=== PATIENT | male | born 1965 | race Caucasian/White ===

== ENCOUNTER 2020-01-01 07:45 | Inpatient (IN) | payer MEDICAID ==
[~2020-01-01] VITALS: Ht 182.9 cm; Wt 147.0 kg
[2020-02-19] MEDS ORDERED: QUET25TA34 PO (16:00)
[2020-02-19 16:55] LABS: BASOPHILS # (AUTO) 0.1 X10'3 (0-0.2); BASOPHILS % (AUTO) 0.8 % (0-1); EOSINOPHILS # (AUTO) 0.2 X10'3 (0-0.9); EOSINOPHILS % (AUTO) 1.9 % (0-6); LYMPHOCYTES # (AUTO) 2.4 X10'3 (1.1-4.8); LYMPHOCYTES % (AUTO) 26.8 % (21-51); MEAN CORPUSCULAR HEMOGLOBIN 30.1 PG (27.0-31.0); MEAN CORPUSCULAR HGB CONC 33.6 g/dL (33.0-36.5); MEAN CORPUSCULAR VOLUME 89.7 FL (78-98); MEAN PLATELET VOLUME 7.4 FL (7.4-10.4); MONOCYTES # (AUTO) 0.8 X10'3 (0-0.9); MONOCYTES % (AUTO) 9.5 % (2-12); NEUTROPHILS # (AUTO) 5.4 X10'3 (1.8-7.7); PRE OP HEMATOCRIT 41.1 % (42.0-52.0); PRE OP HEMOGLOBIN 13.8 g/dL (14.0-17.9); PRE OP PLATELET COUNT 207 X10'3 (140-440); RED BLOOD COUNT 4.58 X10'6 (4.70-6.10); RED CELL DISTRIBUTION WIDTH 14.4 % (11.5-14.5)
[2020-02-19 17:51] LABS: ALBUMIN 3.2 G/DL (3.4-5.0); ALBUMIN/GLOBULIN RATIO 0.8 (1.1-1.5); ALKALINE PHOSPHATASE 111 IU/L (46-116); BLOOD UREA NITROGEN 16 MG/DL (7-18); BUN/CREATININE RATIO 15.8 (5.4-32.0); CALCIUM 8.6 MG/DL (8.5-10.1); CHLORIDE 109 MMOL/L (99-107); CREATININE 1.01 MG/DL (0.60-1.10); PRE OP ALT 23 U/L (30-65); PRE OP ANION GAP 10 (8-16); PRE OP AST 15 U/L (10-37); PRE OP BILIRUB, TOTAL 0.3 MG/DL (0.0-1.0); PRE OP GLUCOSE 101 MG/DL (70-104); PRE OP SODIUM 145 MMOL/L (135-145); TOTAL CARBON DIOXIDE 26.1 MMOL/L (24-32); TOTAL PROTEIN 7.1 G/DL (6.4-8.2); eGFR 77 ML/MIN
[2020-02-26] MEDS ORDERED: ringers solution, lacted 1,000 ML IV SCH (05:00)
[2020-02-26] MEDS ORDERED: famotidine 20mg tablet PO ONE (05:30)
[2020-02-26] MEDS ORDERED: ceFAZolin inj. 3,000 MG in normal saline 100ml IV soln 100 ML IV ONE (05:30)
[2020-02-26] MEDS ORDERED: vancomycin 1,500 MG in NS 300ml IV soln IV ONE (05:30)
[2020-02-26] MEDS ORDERED: tranexamic acid 650mg tablet PO ONE (06:00)
[2020-03-04] VITALS (17 sets, daily range): BP systolic 86–128; BP diastolic 56–78
[2020-03-04] MEDS ORDERED: ceFAZolin inj. 3,000 MG in normal saline 100ml IV soln 100 ML IV ONE (05:30)
[2020-03-04] MEDS ORDERED: famotidine 20mg tablet PO ONE (05:30)
[2020-03-04] MEDS ORDERED: vancomycin 1,500 MG in NS 300ml IV soln IV ONE (05:30)
[2020-03-04] MEDS ORDERED: tranexamic acid 650mg tablet PO ONE (05:30)
[2020-03-04] MEDS ORDERED: ringers solution, lacted 1,000 ML IV SCH ×2 (05:30→11:35)
[2020-03-04] MEDS ORDERED: NO HOME MEDS (08:44)
[2020-03-04] MEDS ORDERED: ROPIVAcaine 0.5% (5mg/ml) 30ml vial ONE ×2 (09:16→12:36)
[2020-03-04] MEDS ORDERED: ketorolac trometh. 30mg/ml inj. ONE (09:16)
[2020-03-04] MEDS ORDERED: tetracaine 1% (10mg/ml) pres. free inj. ONE (09:41)
[2020-03-04] MEDS ORDERED: mineral oil 10ml sterile, topical TP ONE (09:44)
[2020-03-04] MEDS ORDERED: fentaNYL/PF 50MCG/1 ML 2ML syringe ONE (10:12)
[2020-03-04] MEDS ORDERED: MIDAZolam 1mg/ml 10ml vial ONE (10:12)
[2020-03-04] MEDS ORDERED: meperidine/PF 25mg/ml syringe IV PRN ×3 (11:35)
[2020-03-04] MEDS ORDERED: morphine 2 MG/ML inj. syringe IV PRN (11:35)
[2020-03-04] MEDS ORDERED: morphine 4 MG/ML inj SYRINge IV PRN (11:35)
[2020-03-04] MEDS ORDERED: ROPIVAcaine 0.2% (10 MG/5 ML) BOLUS INJECTION ADDCANAL PRN (11:35)
[2020-03-04] MEDS ORDERED: proCHLORperazine 10 MG/2 ml inj IV PRN (11:35)
[2020-03-04] MEDS ORDERED: ondansetron/PF 4mg/2ml inj IV PRN ×2 (11:35→13:15)
[2020-03-04] MEDS ORDERED: propofol inj 20 ML IV ONE (12:22)
[2020-03-04] MEDS ORDERED: acetaminophen 325mg tablet PO PRN (13:15)
[2020-03-04] MEDS ORDERED: diphenhydrAMINE 25mg capsule PO PRN ×2 (13:15)
[2020-03-04] MEDS ORDERED: oxyCODONE IR 5mg (immed. release) tablet PO PRN (13:15)
[2020-03-04] MEDS ORDERED: bisacodyl 10mg suppository rectal RC PRN (13:15)
[2020-03-04] MEDS ORDERED: magnesium hydroxide 30ml (MOM) UD suspension PO PRN (13:15)
[2020-03-04] MEDS ORDERED: HYDROmorphone inj. 0.5 MG/0.5 ML DISP.SYRIN IV PRN (13:15)
[2020-03-04] MEDS ORDERED: HYDROmorphone 1 mg/ml syringe IV PRN (13:15)
--- NOTE | 2020-03-04 13:20 | NUR ---
PATIENT ARRIVED TO RECOVERY VIA BED WITH DR SANDOVAL, PATIENT A&OX4, DENIES PAIN, V/S WNL, NEUROVASCULAR CHECKS INTACT-SENSATION T-9, R FOOT PINK AND WARM, 20G PIV LFA , DRESSING TO RIGHT KNEE CDI W/ COLD POWDER PACK AND WRAP IN PLACE W/ SCDS ON. F/C DRAINING CLEAR YELLOW URINE.
[2020-03-04] MEDS: ROPIVAcaine 0.2%/PF PUMP/bolus 550 ML ADDCANAL SCH (13:48)
[2020-03-04] MEDS: acetaminophen 325mg tablet PO SCH ×2 (14:00→20:32)
--- NOTE | 2020-03-04 14:07 | NUR ---
I have received report from DIAMOND HATCH IN REC[facility]ERY and had the opportunity to ask questions. WILL AWAIT PTS ARRIVAL TO THE FLOOR.
--- NOTE | 2020-03-04 14:30 | NUR ---
PATIENT A&OX4, DENIES PAIN, V/S WNL, NEUROVASCULAR CHECKS INTACT, , DRESSING TO RIGHT KNEE W/ COLD POWDER PACK ,SCDS ON. F/C DRAINING CLEAR YELLOW URINE. SENSATION T-9, ON-Q PUMP ATTACHED AND PLACED AT 2ML/HR . PATIENT TAKEN TO RM 349B WITH ALL BELONGINGS AND HOOKED UP TO MONITORS IN ROOM AND REPORT GIVEN TO FIELD SERVICER WHO HAS TAKEN OVER PATIENT CARE. BED LOW, CALL LIGHT PRESENT AND VSS.
[2020-03-04] MEDS: ceFAZolin/D5W- 1GM premix 50 ML IV SCH ×2 (15:52→23:59)
--- NOTE | 2020-03-04 18:16 | NUR ---
Problems reprioritized. Patient report given, questions answered & plan of care reviewed with DIAMOND RICE.
[2020-03-04] MEDS ORDERED: vancomycin/NS 1 GM ADD-VANTAGE 250 ML IV SCH (20:00)
[2020-03-04] MEDS: potassium cl 20mEq in 1/2 NS 1,000 ML IV SCH (20:31)
[2020-03-04] MEDS: sennosides 8.6mg tablet PO SCH (20:31)
[2020-03-04] MEDS: oxyCODONE IR 5mg (immed. release) tablet PO PRN (20:32)
[2020-03-05] MEDS: oxyCODONE IR 5mg (immed. release) tablet PO PRN ×4 (00:29→21:17)
[2020-03-05] MEDS: acetaminophen 325mg tablet PO SCH ×4 (02:00→19:42)
[2020-03-05 04:00] VITALS: BP 107/67
[2020-03-05] MEDS: potassium cl 20mEq in 1/2 NS 1,000 ML IV SCH (05:36)
[2020-03-05 06:42] LABS: BASOPHILS % (AUTO) 0.1 % (0-1); EOSINOPHILS % (AUTO) 0 % (0-6); HEMATOCRIT 34.6 % (42.0-52.0); HEMOGLOBIN 11.6 g/dl (14.0-17.9); LYMPHOCYTES # (AUTO) 1.3 X10'3 (1.1-4.8); LYMPHOCYTES % (AUTO) 10.9 % (21-51); MEAN CORPUSCULAR HEMOGLOBIN 30.1 PG (27.0-31.0); MEAN CORPUSCULAR HGB CONC 33.5 g/dL (33.0-36.5); MEAN CORPUSCULAR VOLUME 89.9 FL (78-98); MEAN PLATELET VOLUME 7.6 FL (7.4-10.4); MONOCYTES # (AUTO) 0.8 X10'3 (0-0.9); MONOCYTES % (AUTO) 6.6 % (2-12); NEUTROPHILS # (AUTO) 9.7 X10'3 (1.8-7.7); NEUTROPHILS % (AUTO) 82.4 % (42-75); PLATELET COUNT 232 X10'3 (140-440); RED BLOOD COUNT 3.84 X10'6 (4.70-6.10); RED CELL DISTRIBUTION WIDTH 14.4 % (11.5-14.5); WHITE BLOOD COUNT 11.8 X10'3 (4.5-11.0)
--- NOTE | 2020-03-05 06:52 | NUR ---
Report given to Scott FIELDS.
--- NOTE | 2020-03-05 06:52 | NUR ---
Patient in room [facility]. I have received report from DIAMOND RICE and had the opportunity to ask questions and assume patient care.
[2020-03-05 07:00] LABS: ANION GAP 8 (8-16); CHLORIDE 106 MMOL/L (99-107); POTASSIUM 4.3 MMOL/L (3.5-5.1); SODIUM 139 MMOL/L (135-145); TOTAL CARBON DIOXIDE 24.7 MMOL/L (24-32)
[2020-03-05 07:18] VITALS: BP 111/68
[2020-03-05] MEDS: aspirin 325mg tablet PO SCH (08:28)
--- NOTE | 2020-03-05 10:07 | NUR ---
PA Ernst in to see patient. Dressing to right leg with red drainage circled. Removed dressing with Ernst PA, minimal bloody drainage from suture sites. Suture intact. Per Ernst cleanse wound with chlorhexidine, placed sutures, cover with gauze and island dressing.
[2020-03-05 11:00] VITALS: BP 134/78
--- NOTE | 2020-03-05 12:50 | NUR ---
Joint Replacement Consult: Pt seen by RD for written/verbal high protein ed w/ RD contact information provided s/p TKA-R. Pt is agreeable to double eggs at breakfast, double meats BIDLD, and chocolate Gio shake BIDBD for wound healing post-op. Pt reports dislikes cabbage, cauliflower,brussel sprouts, and tomatoes. PA notified for ONS recs and dietary notified of pt preferences. Addendum: 03/05/20 at [address] Amended: Links added.
[2020-03-05 18:00] VITALS: BP 116/70
--- NOTE | 2020-03-05 18:23 | NUR ---
Problems reprioritized. Patient report given, questions answered & plan of care reviewed with DIAMOND Sigala.
[2020-03-05] MEDS: sennosides 8.6mg tablet PO SCH (19:43)
[2020-03-05] MEDS: JUVEN Shake w/Arg/Glut/Ca2+Bmb (Juven 19.3gm) pkt 240ml PO SCH (20:17)
[2020-03-06] VITALS: BP 106/63
[2020-03-06] MEDS: oxyCODONE IR 5mg (immed. release) tablet PO PRN ×4 (01:45→13:38)
[2020-03-06] MEDS: acetaminophen 325mg tablet PO SCH ×2 (02:00→09:41)
[2020-03-06 06:16] LABS: BASOPHILS % (AUTO) 0.4 % (0-1); EOSINOPHILS % (AUTO) 0.4 % (0-6); HEMATOCRIT 30.8 % (42.0-52.0); HEMOGLOBIN 10.4 g/dl (14.0-17.9); LYMPHOCYTES # (AUTO) 1.4 X10'3 (1.1-4.8); LYMPHOCYTES % (AUTO) 16.7 % (21-51); MEAN CORPUSCULAR HEMOGLOBIN 30.5 PG (27.0-31.0); MEAN CORPUSCULAR VOLUME 89.8 FL (78-98); MEAN PLATELET VOLUME 7.7 FL (7.4-10.4); MONOCYTES # (AUTO) 1.1 X10'3 (0-0.9); MONOCYTES % (AUTO) 13.3 % (2-12); NEUTROPHILS # (AUTO) 5.8 X10'3 (1.8-7.7); NEUTROPHILS % (AUTO) 69.2 % (42-75); PLATELET COUNT 177 X10'3 (140-440); RED BLOOD COUNT 3.43 X10'6 (4.70-6.10); RED CELL DISTRIBUTION WIDTH 14.4 % (11.5-14.5); WHITE BLOOD COUNT 8.4 X10'3 (4.5-11.0)
--- NOTE | 2020-03-06 06:33 | NUR ---
Report given to Irina FIELDS.
[2020-03-06 07:00] VITALS: BP 114/74
[2020-03-06] MEDS: ROPIVAcaine 0.2%/PF PUMP/bolus 550 ML ADDCANAL SCH (07:07)
[2020-03-06] MEDS: JUVEN Shake w/Arg/Glut/Ca2+Bmb (Juven 19.3gm) pkt 240ml PO SCH (07:30)
[2020-03-06] MEDS ORDERED: ASPI-1 PO (09:02)
[2020-03-06] MEDS: aspirin 325mg tablet PO SCH (09:40)
[2020-03-06] MEDS ORDERED: OXYC-150 PO (10:45)
[2020-03-06 11:00] VITALS: BP 105/61
[2020-03-06] MEDS ORDERED: acetaminophen 325mg tablet PO PRN (13:15)
--- NOTE | 2020-03-06 13:57 | NUR ---
Contacted Kiana with Case management and she is working on a FWW walker for patient.
--- NOTE | 2020-03-06 16:30 | NUR ---
Patients discharge instructions reviewed with patient and patient verbalized understanding. Patients dressing changed per instructions, steri strips in place island dressing changed and a change of dressing sent home with patient. ONQ ball full. patient has setting at 4 at this time. Patient IV dc'd cannula intact. Patient walker will be delivered to his home. Patient has a cane at home for getting up his steps, and a front wheel walker that requires the brakes be set and Physical therapy discussed with patient the use until he gets his delivered to his home. Nery lee PA is aware of this and is ok to still discharge and have his walker delivered to his home. Kiana with case management is aware and will have it delivered to patients home.
== END 2020-03-06 16:45 | disposition home or self-care (01) | DRG 302 ==
LOC: UNDOADMIN 03-04 07:25 → PAS IN 03-04 07:25 → EDSTATUS 03-04 10:15 → PAS IN 03-04 13:12 → SUR 3N 03-04 14:36 → PAS IN 03-04 14:36
PROVIDERS: ADMIT Orthopaedic Surgery; ATTEND Orthopaedic Surgery
PROC: 8E0WXBZ Computer Assisted Procedure of Trunk Region (ICD-10-PCS; 2020-03-04)
PROC: 3E0T3BZ Introduction of Anesthetic Agent into Peripheral Nerves and Plexi, Percutaneous Approach (ICD-10-PCS; 2020-03-04)
PROC: 0SRC0J9 Replacement of Right Knee Joint with Synthetic Substitute, Cemented, Open Approach (ICD-10-PCS; principal; 2020-03-04 10:11)
DX: M17.11 Unilateral primary osteoarthritis, right knee (principal); D50.0 Iron deficiency anemia secondary to blood loss (chronic); Z20.822 Contact with and (suspected) exposure to COVID-19
CPT/HCPCS: 36415; 71046; 80051; 80053; 82948; 85025; 87081; 87635; 97110; 97112; 97116; 97161; 97530; A4215; A6258; A7000; C1713; C1758; C1776; G0378; J0690; J1885; J2250; J2704; J2795; J3010; J3370; J3480; J7040; J7120

== ENCOUNTER 2020-12-28 19:35 | Emergency (ER) | payer MEDICAID ==
[~2020-12-28] VITALS: Ht 182.9 cm; Wt 118.1 kg
[~2020-12-28 19:35] MED LIST: ASPI-1 PO; NO HOME MEDS; OXYC-150 PO
[2020-12-28 19:39] VITALS: BP 136/72
== END 2020-12-29 00:30 | disposition left against medical advice (07) ==
LOC: ER 19:35
DX: M54.6 Pain in thoracic spine (principal); Z53.21 Procedure and treatment not carried out due to patient leaving prior to being seen by health care provider